=== PATIENT | female | born 1990 | race Caucasian/White ===

== ENCOUNTER 2022-12-20 22:44 | Emergency (ER) | payer SELFPAY ==
[~2022-12-20] VITALS: Ht 160 cm; Wt 55.3 kg
[2022-12-20] MEDS ORDERED: LEVO25TA9 PO (23:00)
[2022-12-20] MEDS ORDERED: METH20TA PO (23:00)
[2022-12-20 23:35] LABS: BASOPHILS % (AUTO) 0.7 % (0.0-2.0); EOSINOPHILS # (AUTO) 0.6 K/uL (0.0-0.7); EOSINOPHILS % (AUTO) 10.6 % (0.0-7.0); HEMATOCRIT 38.3 % (31.2-41.9); HEMOGLOBIN 12.7 g/dL (10.9-14.3); LYMPHOCYTES # (AUTO) 1.7 K/uL (0.8-4.8); LYMPHOCYTES % (AUTO) 30.5 % (20.5-51.5); MEAN CORPUSCULAR HEMOGLOBIN 30.2 uug (24.7-32.8); MEAN CORPUSCULAR HGB CONC 33 g/dL (32.3-35.6); MEAN CORPUSCULAR VOLUME 90.8 fL (75.5-95.3); MONOCYTES # (AUTO) 0.4 K/uL (0.1-1.30); MONOCYTES % (AUTO) 7.4 % (0.0-11.0); NEUTROPHILS # (AUTO) 2.9 K/uL (1.8-8.9); NEUTROPHILS % (AUTO) 50.8 % (38.5-71.5); PLATELET COUNT (AUTO) 240 K/uL (179-408); RED BLOOD CELL COUNT(AUTO) 4.22 MIL/uL (3.63-4.92); RED CELL DISTRIBUTION WIDTH 14.4 % (12.3-17.7); WHITE BLOOD COUNT (AUTO) 5.6 K/uL (3.8-11.8)
[2022-12-20 23:54] LABS: CALCIUM 9.4 mg/dL (8.5-10.1); CREATININE 1.1 mg/dL (0.6-1.3); POTASSIUM 3.9 mmol/L (3.5-5.1)
[2022-12-21 00:01] LABS: DIFFERENTIAL COMMENT 1
[2022-12-21] MEDS ORDERED: HYDROCODONE/APAP 5-325MG TABLET ONE (01:26)
[2022-12-21] MEDS ORDERED: HYDR-3980 PO (01:28)
[2022-12-21] MEDS ORDERED: HYDROCODONE/APAP 5-325MG TABLET PO ONE (01:30)
[2022-12-21 02:10] VITALS: BP 130/90; TEMP 98.5; O2SAT 99
== END 2022-12-21 02:10 | disposition home or self-care (01) ==
LOC: ER 22:48
DX: S20.212A Contusion of left front wall of thorax, initial encounter (principal); R10.2 Pelvic and perineal pain; S39.91XA Unspecified injury of abdomen, initial encounter; E03.9 Hypothyroidism, unspecified; Z90.49 Acquired absence of other specified parts of digestive tract; Z79.899 Other long term (current) drug therapy; V43.62XA Car passenger injured in collision with other type car in traffic accident, initial encounter; Y93.89 Activity, other specified; Y92.410 Unspecified street and highway as the place of occurrence of the external cause; Y99.8 Other external cause status
CPT/HCPCS: 36415; 71101; 85025; A4663